=== PATIENT | female | born 1965 ===

== ENCOUNTER 2017-02-02 09:59 | Emergency (ER) | payer MEDICAID ==
[2017-02-02 10:23] VITALS: BMI 30.1
--- NOTE | 2017-02-02 10:36 | ED PDOC ---
HPI: CCC, URI, Sore Throat Time Seen by Provider: 02/02/17 10:04 Chief Complaint (Nursing): Cough, Cold, Congestion Chief Complaint (Provider): Sinus pressure x 6 days Onset/Duration Of Symptoms: Days Current Symptoms Are (Timing): Still Present Location Of Pain: Throat, Sinus/es, Headache Sick Contacts (Context): None Associated Symptoms: Sore Throat, Sinus Drainage, Myalgias. denies: Fever, Chills, Cough, Sputum, Neck Pain, Nasal Congestion, Vomiting Ear Symptoms: Bilateral: None Additional Complaint(s): PT states she has not taken any OTC medications Past Medical History Reviewed: Historical Data, Nursing Documentation, Vital Signs - Medical History PMH: Anxiety, Arthritis, Back Problems ("8 pinched nerves"), Depression, HTN ( STates she is not taking medication for BP becuase it improved after weight), Hypercholesterolemia Denies: Chronic Kidney Disease - Surgical History Surgical History: Tonsillectomy, (x1) - Family History Family History: States: Unknown Family Hx - Immunization History Hx Tetanus Toxoid Vaccination: No - Home Medications Home Medications: Ambulatory Orders Medication Instructions Recorded Azithromycin [Zithromax] 250 mg PO DAILY #6 tab 02/02/17 Guaifen/Phenyleph/Acetaminophn 1 tab PO BID #14 tab 02/02/17 [Mucinex Fast-Max Cold & Sinus 325 mg-200 mg-5] - Allergies Allergies/Adverse Reactions: Allergies Allergy/AdvReac Type Severity Reaction Status Date / Time No Known Allergies Allergy Verified 08/26/15 21:11 Review of Systems ROS Statement: Except As Marked, All Systems Reviewed And Found Negative Constitutional: Negative for: Fever ENT: Positive for: Nose Congestion, Throat Pain, Other. Negative for: Ear Pain Gastrointestinal: Negative for: Nausea, Vomiting, Abdominal Pain, Diarrhea Neurological: Negative for: Weakness Physical Exam - Reviewed Nursing Documentation Reviewed: Yes Vital Signs Reviewed: Yes - Physical Exam Appears: Positive for: Well, Non-toxic, No Acute Distress Head Exam: Positive for: ATRAUMATIC, NORMAL INSPECTION, NORMOCEPHALIC Skin: Positive for: Normal Color, Warm, DRY Eye Exam: Positive for: Normal appearance ENT: Positive for: Other (Tenderness of the frontal sinuses to percussion). Negative for: Normal ENT Inspection Neck: Positive for: Normal, Painless ROM Cardiovascular/Chest: Positive for: Regular Rate, Rhythm Respiratory: Positive for: CNT, Normal Breath Sounds Gastrointestinal/Abdominal: Positive for: Normal Exam, Bowel Sounds, Soft Back: Positive for: Normal Inspection Extremity: Positive for: Normal ROM Neurologic/Psych: Positive for: Alert, Oriented - Laboratory Results Urine POC: Negative Disposition - Clinical Impression Clinical Impression: Sinusitis - Patient ED Disposition Is Patient to be Admitted: No Counseled Patient/Family Regarding: Diagnosis, Need For Followup, Rx Given - Disposition Disposition: Routine/Home Disposition Time: 10:37 Condition: GOOD Prescriptions: Azithromycin [Zithromax] 250 mg PO DAILY #6 tab Guaifen/Phenyleph/Acetaminophn [Mucinex Fast-Max Cold & Sinus 325 mg-200 mg-5] 1 tab PO BID #14 tab Instructions: Sinusitis (ED)
[2017-02-02 10:47] VITALS: BP 132/85; PULSE 81; RESP 18; TEMP 98.2; O2SAT 99
== END 2017-02-02 10:50 | disposition home or self-care (01) ==
LOC: H.ER 09:59
DX: J01.90 Acute sinusitis, unspecified (principal)

== ENCOUNTER 2017-02-04 20:22 | Emergency (ER) | payer MEDICAID ==
[2017-02-04 20:23] VITALS: BMI 30.1
[2017-02-04 20:34] VITALS: BP 146/109; PULSE 91; TEMP 99.8; O2SAT 99
[2017-02-04 21:56] LABS: BASO % 0.4 % (0.0-2.0); EOS # 0.1 K/uL (0.0-0.7); EOS % 0.8 % (0.0-4.0); HEMOGLOBIN 13.6 g/dL (12.0-16.0); LYMPH # 3.1 K/uL (1.0-4.3); LYMPH % 29.9 % (20.0-40.0); MEAN CELL VOLUME 84.7 fl (81.0-99.0); MEAN CORPUSCULAR HEMOGLOBIN 27.7 pg (27.0-31.0); MEAN CORPUSCULAR HGB CONC 32.8 g/dL (33.0-37.0); MONO # 1.1 K/uL (0.0-0.8); MONO % 10.6 % (0.0-10.0); NEUT # 6.1 K/uL (1.8-7.0); NEUT % 58.3 % (50.0-75.0); RBC 4.9 Mil/uL (3.80-5.20); RED CELL DISTRIBUTION WIDTH 14.1 % (11.5-14.5); WHITE BLOOD COUNT 10.5 K/uL (4.8-10.8)
[2017-02-04 22:11] VITALS: RESP 20
--- NOTE | 2017-02-04 22:13 | CT ---
EXAM: CT Abdomen and Pelvis Without Intravenous Contrast CLINICAL HISTORY: 51 years old, female; Pain; Abdominal pain; Flank; Right; Prior surgery; Surgery date: 6+ months; Surgery type: Gastric sleeve. Tummy tuck. /1. Hysterectomy; Additional info: Right flank and abdominal pain TECHNIQUE: Axial computed tomography images of the abdomen and pelvis without intravenous contrast. This CT exam was performed using one or more of the following dose reduction techniques: automated exposure control, adjustment of the mA and/or kV according to patient size, and/or use of iterative reconstruction technique. Coronal and sagittal reformatted images were created and reviewed. EXAM DATE/TIME: 02/04/2017 9:09 PM COMPARISON: Prior CT abdomen and pelvis of 07/19/2013 FINDINGS: LIMITATIONS: Mild streak/motion artifact. LOWER THORAX: Small hiatal hernia, also seen on the prior exam. ABDOMEN: LIVER: No acute abnormality of the liver identified. GALLBLADDER AND BILE DUCTS: No CT evidence of acute cholecystitis. No evidence of significant biliary ductal dilatation. PANCREAS: No CT evidence of acute pancreatitis. SPLEEN: No acute abnormality of the spleen identified. ADRENALS: No acute abnormality of the adrenal glands identified. KIDNEYS AND URETERS: Low density lesion in the right kidney, measuring 1.3 cm, most likely a cyst. No acute abnormality of the kidneys identified. No renal stones, hydronephrosis, or hydroureter seen. STOMACH AND BOWEL: Postsurgical changes involving the stomach, compatible with the given history of prior gastric sleeve surgery stable in appearance compared to the prior exam. Otherwise, no significant abnormality of the bowel is identified. No acute abnormality of the stomach is identified. No evidence of bowel obstruction. No evidence of diffuse colitis/pancolitis. APPENDIX: Appendix is seen, and is within normal limits in appearance. PELVIS: BLADDER: No acute abnormality of the bladder identified. REPRODUCTIVE: Uterus is surgically absent. ABDOMEN and PELVIS: INTRAPERITONEAL SPACE: No evidence of free intraperitoneal air or fluid. BONES/JOINTS: No acute fractures or other acute bony abnormality noted. SOFT TISSUES: Probable scarring in the anterior pelvic wall soft tissues, likely related to the known prior abdominoplasty. Irregular soft tissue density is seen in this area, which is associated with soft tissue thinning/retraction. No evidence of abdominal wall hernia containing bowel. VASCULATURE: No evidence of abdominal aortic aneurysm. No evidence of periaortic hemorrhage. LYMPH NODES: No evidence of diffuse lymphadenopathy. IMPRESSION: - No evidence of significant acute process on this unenhanced exam. There is no evidence of nephrolithiasis or obstructive uropathy. - Small hiatal hernia, with evidence of prior gastric sleeve surgery. Findings are similar to a prior CT. - See above for remaining findings.
[2017-02-04 22:17] LABS: ALB/GLOB RATIO 1.5 (1.0-2.1); ALBUMIN 4.8 g/dL (3.5-5.0); ALT/SGPT 42 U/L (9-52); AST/SGOT 34 U/L (14-36); BLOOD UREA NITROGEN 18 mg/dl (7-17); CALCIUM 9.9 mg/dL (8.4-10.2); GFR AFRICAN-AMERICAN > 60; GFR NON-AFRICAN AMERICAN > 60; LIPASE 52 U/L (23-300)
--- NOTE | 2017-02-04 22:34 | ED PDOC ---
HPI: SOB/CHF/COPD Time Seen by Provider: 02/04/17 20:48 Chief Complaint (Nursing): Shortness Of Breath Chief Complaint (Provider): Shortness Of Breath History Per: Patient History/Exam Limitations: no limitations Onset/Duration Of Symptoms: Days (x4 days) Current Symptoms Are (Timing): Still Present Additional Complaint(s): 51 y/o female presents to the emergency department with a complaint of a right- sided flank pain that radiating to the front abdominal region, nausea and shortness of breath that was initially mild in pain but worsened x4 days. Patient reports she was seen in this emergency room 2 days ago for upper respiratory symptoms and diagnosed with sinusitis which had gotten better although abdominal pain with associated symptoms had not. States pain worsens with certain movements and deep breaths. Denies vomiting, diarrhea, constipation , and urinary symptoms. Past Medical History Reviewed: Historical Data, Nursing Documentation, Vital Signs Vital Signs: Last Vital Signs Temp 99.8 F H 02/04/17 20:31 Pulse 91 H 02/04/17 20:31 Resp 20 02/04/17 22:02 BP 146/109 H 02/04/17 20:31 Pulse Ox 99 02/04/17 23:48 - Medical History PMH: Anxiety, Arthritis, Back Problems ("8 pinched nerves"), Depression, HTN ( STates she is not taking medication for BP becuase it improved after weight), Hypercholesterolemia Denies: Chronic Kidney Disease - Surgical History Surgical History: Tonsillectomy, (x1) - Family History Family History: States: Hypertension - Social History Current smoker - smoking cessation education provided: No Alcohol: None Drugs: Denies - Immunization History Hx Tetanus Toxoid Vaccination: No - Home Medications Home Medications: Ambulatory Orders Medication Instructions Recorded Azithromycin [Zithromax] 250 mg PO DAILY #6 tab 02/02/17 Guaifen/Phenyleph/Acetaminophn 1 tab PO BID #14 tab 02/02/17 [Mucinex Fast-Max Cold & Sinus 325 mg-200 mg-5] Sucralfate [Carafate] 1 gm PO QID PRN #20 dose 02/04/17 - Allergies Allergies/Adverse Reactions: Allergies Allergy/AdvReac Type Severity Reaction Status Date / Time No Known Allergies Allergy Verified 08/26/15 21:11 Review of Systems ROS Statement: Except As Marked, All Systems Reviewed And Found Negative Gastrointestinal: Positive for: Nausea, Abdominal Pain. Negative for: Vomiting , Diarrhea, Constipation Genitourinary Female: Negative for: Dysuria, Frequency, Incontinence, Hematuria Musculoskeletal: Positive for: Back Pain Physical Exam - Reviewed Nursing Documentation Reviewed: Yes Vital Signs Reviewed: Yes - Physical Exam Appears: Positive for: Well (Well developed and well nourished), Non-toxic, In Acute Distress (Mild) Head Exam: Positive for: ATRAUMATIC, NORMAL INSPECTION, NORMOCEPHALIC Skin: Positive for: Normal Color, Warm, Dry ENT: Positive for: Normal ENT Inspection. Negative for: Pharyngeal Erythema Neck: Positive for: Normal, Supple Cardiovascular/Chest: Positive for: Regular Rate, Rhythm, Other (Tenderness to palpation of the right posterior chest wall). Negative for: Chest Non Tender ( no crepitus or step off), Murmur Respiratory: Positive for: Normal Breath Sounds. Negative for: Accessory Muscle Use, Respiratory Distress Gastrointestinal/Abdominal: Positive for: Soft, Tenderness (Diffuse tenderness but more localized to the right lower quadrant compared to the left). Negative for: Normal Exam, Distended Extremity: Positive for: Normal ROM. Negative for: Pedal Edema Neurologic/Psych: Positive for: Alert, Oriented, Mood/Affect (Anxious) - Laboratory Results Result Diagrams: 02/04/17 21:31 02/04/17 21:31 - ECG O2 Sat by Pulse Oximetry: 99 (RA) Pulse Ox Interpretation: Normal Medical Decision Making Medical Decision Making: Time: 21:09 Initial Impression: Flank pain and shortness of breath. Differential includes renal colic and pyelonephritis. Less likely appendicitis and pulmonary embolism. Initial Plan: --EKG --Chest x-ray --Toradol 15 mg IV --Blood Culture --Reevaluation Time: 22:12 --Abdomen/Pelvis CT FINDINGS: LIMITATIONS: Mild streak/motion artifact. LOWER THORAX: Small hiatal hernia, also seen on the prior exam. ABDOMEN: LIVER: No acute abnormality of the liver identified. GALLBLADDER AND BILE DUCTS: No CT evidence of acute cholecystitis. No evidence of significant biliary ductal dilatation. PANCREAS: No CT evidence of acute pancreatitis. SPLEEN: No acute abnormality of the spleen identified. ADRENALS: No acute abnormality of the adrenal glands identified. KIDNEYS AND URETERS: Low density lesion in the right kidney, measuring 1.3 cm, most likely a cyst. No acute abnormality of the kidneys identified. No renal stones, hydronephrosis, or hydroureter seen. STOMACH AND BOWEL: Postsurgical changes involving the stomach, compatible with the given history of prior gastric sleeve surgery stable in appearance compared to the prior exam. Otherwise, no significant abnormality of the bowel is identified. No acute abnormality of the stomach is identified. No evidence of bowel obstruction. No evidence of diffuse colitis/pancolitis. APPENDIX: Appendix is seen, and is within normal limits in appearance. PELVIS: BLADDER: No acute abnormality of the bladder identified. REPRODUCTIVE: Uterus is surgically absent. ABDOMEN and PELVIS: INTRAPERITONEAL SPACE: No evidence of free intraperitoneal air or fluid. BONES/JOINTS: No acute fractures or other acute bony abnormality noted. SOFT TISSUES: Probable scarring in the anterior pelvic wall soft tissues, likely related to the known prior abdominoplasty. Irregular soft tissue density is seen in this area, which is associated with soft tissue thinning/ retraction. No evidence of abdominal wall hernia containing bowel. VASCULATURE: No evidence of abdominal aortic aneurysm. No evidence of periaortic hemorrhage. LYMPH NODES: No evidence of diffuse lymphadenopathy. IMPRESSION: - No evidence of significant acute process on this unenhanced exam. There is no evidence of nephrolithiasis or obstructive uropathy. - Small hiatal hernia, with evidence of prior gastric sleeve surgery. Findings are similar to a prior CT. - See above for remaining findings. EXAM: CT Angiography Chest With Intravenous Contrast CLINICAL HISTORY: 51 years old, female; Signs and symptoms; Shortness of breath; Additional info: SOB positive d dimer TECHNIQUE: Axial computed tomographic angiography images of the chest with intravenous contrast using pulmonary embolism protocol. This CT exam was performed using one or more of the following dose reduction techniques: automated exposure control, adjustment of the mA and/or kV according to patient size, and/or use of iterative reconstruction technique. MIP reconstructed images were created and reviewed. Coronal and sagittal reformatted images were created and reviewed. CONTRAST: 90 mL of [id number] administered intravenously. COMPARISON: None FINDINGS: Pulmonary arteries: No pulmonary embolism. Aorta: No thoracic aortic aneurysm. Lungs: No mass. No consolidation. Pleural spaces: No significant effusion. No pneumothorax. Heart: No cardiomegaly. No significant pericardial effusion. No evidence of right heart dysfunction. Bones: No acute fracture. Lymph nodes: No pathologically enlarged lymph nodes. IMPRESSION: No pulmonary embolism. The lungs are clear. Thank you for allowing us to participate in the care of your patient. Dictated and Authenticated by: Sofie Galicia MD 02/04/2017 11:36 PM Eastern Time ([place] & [place]) DW pt findings and plan of care.Stable for dc. Scribe Attestation: Documented by Parul Vaughn, acting as a scribe for Renee Choi MD. Provider Scribe Attestation: All medical record entries made by the Scribe were at my direction and personally dictated by me. I have reviewed the chart and agree that the record accurately reflects my personal performance of the history, physical exam, medical decision making, and the department course for this patient. I have also personally directed, reviewed, and agree with the discharge instructions and disposition. Disposition - Clinical Impression Clinical Impression: Flank pain, Abdominal pain Counseled Patient/Family Regarding: Studies Performed, Diagnosis, Need For Followup, Rx Given - Disposition Referrals: [facility] [Outside] - 02/05/17 (CALL TOMORROW TO SETUP FOLLOWUP APPOINTMENT WITHIN 1 WEEK.) Disposition: Routine/Home Disposition Time: 23:00 Condition: IMPROVED Prescriptions: Sucralfate [Carafate] 1 gm PO QID PRN #20 dose PRN Reason: Abdominal pain Instructions: Gas and Bloating (ED), Abdominal Pain (ED) Forms: [facility] ED School/Work Excuse
[2017-02-04] MEDS ORDERED: Sodium Chloride 0.9% 50 ML IV ONE (22:57)
[2017-02-04] MEDS ORDERED: Iodixanol 320 MG/ML 100 ML BOTTLE IV ONE (22:57)
--- NOTE | 2017-02-04 23:37 | CT ---
EXAM: CT Angiography Chest With Intravenous Contrast CLINICAL HISTORY: 51 years old, female; Signs and symptoms; Shortness of breath; Additional info: SOB positive d dimer TECHNIQUE: Axial computed tomographic angiography images of the chest with intravenous contrast using pulmonary embolism protocol. This CT exam was performed using one or more of the following dose reduction techniques: automated exposure control, adjustment of the mA and/or kV according to patient size, and/or use of iterative reconstruction technique. MIP reconstructed images were created and reviewed. Coronal and sagittal reformatted images were created and reviewed. CONTRAST: 90 mL of [id number] administered intravenously. COMPARISON: None FINDINGS: Pulmonary arteries: No pulmonary embolism. Aorta: No thoracic aortic aneurysm. Lungs: No mass. No consolidation. Pleural spaces: No significant effusion. No pneumothorax. Heart: No cardiomegaly. No significant pericardial effusion. No evidence of right heart dysfunction. Bones: No acute fracture. Lymph nodes: No pathologically enlarged lymph nodes. IMPRESSION: No pulmonary embolism. The lungs are clear.
--- NOTE | 2017-02-05 10:08 | RAD ---
HISTORY: RIGHT flank pain sob cough COMPARISON: No prior. TECHNIQUE: Chest PA and lateral FINDINGS: LUNGS: The lungs are well inflated and clear. PLEURA: No significant pleural effusion identified. No pneumothorax apparent. CARDIOVASCULAR: Normal. OSSEOUS STRUCTURES: No significant abnormalities. Status post ACDF in the lower cervical spine. VISUALIZED UPPER ABDOMEN: Normal. OTHER FINDINGS: None. IMPRESSION: No active pulmonary disease.
--- NOTE | 2017-02-05 10:58 | CARD ---
APPROVED REPORT EKG Measurement Heart [id number] <Conclusion> Normal sinus rhythm Possible Left atrial enlargement Left ventricular hypertrophy Poor R wave progression (V2 to V3)Abnormal ECG
== END 2017-02-05 | disposition home or self-care (01) ==
LOC: H.ER 20:22
DX: R10.9 Unspecified abdominal pain (principal); R14.0 Abdominal distension (gaseous); F32.9 Major depressive disorder, single episode, unspecified; F41.9 Anxiety disorder, unspecified; I10 Essential (primary) hypertension; Z90.710 Acquired absence of both cervix and uterus; J44.9 Chronic obstructive pulmonary disease, unspecified; K44.9 Diaphragmatic hernia without obstruction or gangrene

== ENCOUNTER 2017-04-29 19:35 | Emergency (ER) | payer MEDICAID ==
[2017-04-29 19:36] VITALS: BMI 30.1
[2017-04-29 20:04] VITALS: BP 148/113; PULSE 105; RESP 16; TEMP 98.6; O2SAT 100
--- NOTE | 2017-04-29 20:24 | ED PDOC ---
Lower Extremity Pain/Injury Time Seen by Provider: 04/29/17 20:09 Chief Complaint (Nursing): Lower Extremity Problem/Injury Chief Complaint (Provider): left knee pain History Per: Patient History/Exam Limitations: no limitations Onset/Duration Of Symptoms: Days (3) Current Symptoms Are (Timing): Still Present Additional History Per: Patient Additional Complaint(s): 51 y/o female presents with acute on chronic left knee pain x 3 days. Patient states pain has been there after trauma/surgery to left lower leg >10 years ago. Patient states she has not been seen by anyone for it recently since it has not bothered her in a while. Patient denies fever, new injury/trauma, numbness/weakness left lower extremity. One oxycodone taken with little relief. Past Medical History Reviewed: Historical Data, Nursing Documentation, Vital Signs Vital Signs: Last Vital Signs Temp 98.6 F 04/29/17 20:01 Pulse 105 H 04/29/17 20:01 Resp 16 04/29/17 20:01 BP 148/113 H 04/29/17 20:01 Pulse Ox 100 04/29/17 20:01 - Medical History PMH: Anxiety, Arthritis, Back Problems ("8 pinched nerves"), Depression, HTN ( STates she is not taking medication for BP becuase it improved after weight), Hypercholesterolemia, Chronic Pain Denies: Chronic Kidney Disease - Surgical History Surgical History: Tonsillectomy, (x1) - Family History Family History: States: Unknown Family Hx, Hypertension - Immunization History Hx Tetanus Toxoid Vaccination: No - Home Medications Home Medications: Ambulatory Orders Medication Instructions Recorded Azithromycin [Zithromax] 250 mg PO DAILY #6 tab 02/02/17 Guaifen/Phenyleph/Acetaminophn 1 tab PO BID #14 tab 02/02/17 [Mucinex Fast-Max Cold & Sinus 325 mg-200 mg-5] Sucralfate [Carafate] 1 gm PO QID PRN #20 dose 02/04/17 Naproxen [Naprosyn] 500 mg PO Q12 PRN #20 tablet 04/29/17 - Allergies Allergies/Adverse Reactions: Allergies Allergy/AdvReac Type Severity Reaction Status Date / Time No Known Allergies Allergy Verified 04/29/17 20:01 Review of Systems ROS Statement: Except As Marked, All Systems Reviewed And Found Negative Musculoskeletal: Positive for: Leg Pain (left knee) Physical Exam - Reviewed Nursing Documentation Reviewed: Yes Vital Signs Reviewed: Yes - Physical Exam Appears: Positive for: Well, Non-toxic, No Acute Distress Cardiovascular/Chest: Positive for: Regular Rate, Rhythm Respiratory: Positive for: Normal Breath Sounds Pulses-Dorsalis Pedis (L): 2+ Pulses-Dorsalis Pedis (R): 2+ Pulses-Post. Tibialis (L): 2+ Pulses-Post. Tibialis (R): 2+ Extremity: Positive for: Tenderness (left medial knee with mild swelling. No erythema, temp change. No varus/valgus stress. FROM) Neurologic/Psych: Positive for: Alert, Oriented. Negative for: Motor/Sensory Deficits - ECG O2 Sat by Pulse Oximetry: 100 - Progress ED Course And Treament: xray, toradol IM EXAM: XR Left Knee, 3 views CLINICAL HISTORY: 51 years old, female; Pain; Knee; Left; Additional info: Acute on chronic pain TECHNIQUE: Three views of the left knee. COMPARISON: MR - KNEE W/O CONTRAST LEFT 10/30/2016 4:32:39 PM FINDINGS: Bones/joints: Degenerative disease, with tibiofemoral joint space narrowing and patellofemoral joint space narrowing. Osteophyte formation is also detected. No acute fracture. No dislocation. Soft tissues: Unremarkable. IMPRESSION: Degenerative disease, without acute fracture. Knee wrapped in INGRID. Advised RICE, rx naproxen given.Follow up ortho. Return to ED for worsening/concerning symptoms. Disposition - Clinical Impression Clinical Impression: Knee pain - Patient ED Disposition Is Patient to be Admitted: No Counseled Patient/Family Regarding: Studies Performed, Diagnosis, Need For Followup, Rx Given - Disposition Referrals: William Manjarrez III, MD [Staff Provider] - Disposition: Routine/Home Disposition Time: 22:10 Condition: IMPROVED Prescriptions: Naproxen [Naprosyn] 500 mg PO Q12 PRN #20 tablet PRN Reason: Pain, Moderate (4-7) Instructions: Knee Pain (ED), RICE Therapy (ED)
--- NOTE | 2017-04-29 21:57 | RAD ---
EXAM: XR Left Knee, 3 views CLINICAL HISTORY: 51 years old, female; Pain; Knee; Left; Additional info: Acute on chronic pain TECHNIQUE: Three views of the left knee. COMPARISON: MR - KNEE W/O CONTRAST LEFT 10/30/2016 4:32:39 PM FINDINGS: Bones/joints: Degenerative disease, with tibiofemoral joint space narrowing and patellofemoral joint space narrowing. Osteophyte formation is also detected. No acute fracture. No dislocation. Soft tissues: Unremarkable. IMPRESSION: Degenerative disease, without acute fracture.
== END 2017-04-29 22:30 | disposition home or self-care (01) ==
LOC: H.ER 19:35
DX: M25.562 Pain in left knee (principal)
CPT/HCPCS: 73562; 96372; 99283; J1885

== ENCOUNTER 2017-07-29 18:10 | Emergency (ER) | payer MEDICAID ==
[2017-07-29 18:11] VITALS: BMI 30.1
[2017-07-29 18:53] VITALS: BP 173/119; PULSE 84; RESP 16; TEMP 98; O2SAT 100
--- NOTE | 2017-07-29 19:39 | ED PDOC ---
Lower Extremity Pain/Injury Time Seen by Provider: 07/29/17 18:19 Chief Complaint (Nursing): Lower Extremity Problem/Injury Chief Complaint (Provider): Lower Extremity Problem/Injury History Per: Patient History/Exam Limitations: no limitations Onset/Duration Of Symptoms: Days (x 2) Current Symptoms Are (Timing): Still Present Additional History Per: Prior Records Additional Complaint(s): Ilana is a 51 year old female who presents to the emergency department with chronic left knee pain since yesterday. Denies recent injury or trauma. Patient reports taking Oxycodone 15 mg at home, but with no relief. Patient is requesting "butt injection". Previous records shows patient got Toradol last visit PMD: Rhonda Madison Past Medical History Reviewed: Historical Data, Nursing Documentation, Vital Signs Vital Signs: Last Vital Signs Temp 98.0 F 07/29/17 18:50 Pulse 84 07/29/17 18:50 Resp 16 07/29/17 18:50 BP 173/119 H 07/29/17 18:50 Pulse Ox 100 07/29/17 18:50 - Medical History PMH: Anxiety, Arthritis, Back Problems ("8 pinched nerves"), Depression, HTN ( STates she is not taking medication for BP becuase it improved after weight), Hypercholesterolemia, Chronic Pain Denies: Chronic Kidney Disease - Surgical History Surgical History: Tonsillectomy, (x1) - Family History Family History: States: Unknown Family Hx, Hypertension - Immunization History Hx Tetanus Toxoid Vaccination: No - Home Medications Home Medications: Ambulatory Orders Medication Instructions Recorded Azithromycin [Zithromax] 250 mg PO DAILY #6 tab 02/02/17 Guaifen/Phenyleph/Acetaminophn 1 tab PO BID #14 tab 02/02/17 [Mucinex Fast-Max Cold & Sinus 325 mg-200 mg-5] Sucralfate [Carafate] 1 gm PO QID PRN #20 dose 02/04/17 Naproxen [Naprosyn] 500 mg PO Q12 PRN #20 tablet 04/29/17 - Allergies Allergies/Adverse Reactions: Allergies Allergy/AdvReac Type Severity Reaction Status Date / Time No Known Allergies Allergy Verified 07/29/17 18:50 Review of Systems ROS Statement: Except As Marked, All Systems Reviewed And Found Negative Musculoskeletal: Positive for: Other (Left Knee Pain) Physical Exam - Reviewed Nursing Documentation Reviewed: Yes Vital Signs Reviewed: Yes - ECG O2 Sat by Pulse Oximetry: 100 (RA) Pulse Ox Interpretation: Normal Medical Decision Making Medical Decision Making: Time: 19:25 Plan: - Toradol 60 mg IM Scribe Attestation: Documented by Hernan Cuadra, acting as a scribe for Rae Vaughn PA-C Provider Scribe Attestation: All medical record entries made by the Scribe were at my direction and personally dictated by me. I have reviewed the chart and agree that the record accurately reflects my personal performance of the history, physical exam, medical decision making, and the department course for this patient. I have also personally directed, reviewed, and agree with the discharge instructions and disposition. Disposition - Clinical Impression Clinical Impression: Chronic knee pain - Disposition Condition: STABLE Instructions: Chronic Pain (ED) Forms: [employer] (Panamanian)
== END 2017-07-29 20:10 | disposition home or self-care (01) ==
LOC: H.ER 18:10
DX: M25.562 Pain in left knee (principal); G89.29 Other chronic pain; F32.9 Major depressive disorder, single episode, unspecified; F41.9 Anxiety disorder, unspecified; I10 Essential (primary) hypertension
CPT/HCPCS: 81025; 96372; 99283; J1885

== ENCOUNTER 2017-09-03 15:50 | Emergency (ER) | payer MEDICAID ==
[2017-09-03 15:51] VITALS: BMI 30.1
[2017-09-03 16:00] VITALS: BP 149/95; PULSE 91; RESP 16; TEMP 98.7; O2SAT 100
[2017-09-03] MEDS ORDERED: Sodium Chloride 0.9% 1,000 ML IV STA (16:34)
[2017-09-03] MEDS ORDERED: Iohexol 240 (50 ml) PO ONE (16:37)
[2017-09-03] MEDS ORDERED: Morphine 4 MG/ML VIAL ONE (16:47)
[2017-09-03] MEDS ORDERED: Iohexol 240 (50 ml) ONE (16:47)
--- NOTE | 2017-09-03 16:47 | ED PDOC ---
HPI: Abdomen Time Seen by Provider: 09/03/17 16:17 Chief Complaint (Nursing): Abdominal Pain Chief Complaint (Provider): Abdominal pain History Per: Patient History/Exam Limitations: no limitations Onset/Duration Of Symptoms: Days (x2 months) Current Symptoms Are (Timing): Still Present Quality Of Discomfort: "Pain" Associated Symptoms: Urinary Symptoms (bloody urine, no dysuria), Other ( abdominal pain, hemoptysis). denies: Fever, Chills, Nausea, Vomiting, Diarrhea , Chest Pain Additional Complaint(s): Ilana Hilario is a 52 year old female, with a past medical history of hypertension, who presents to the emergency department complaining of blood in urine, and abdominal pain onset for x2 months. Patient also reports a worsening cough and congestion for x5 days associated with x2 episodes of coughing up blood. Patient states she was seen by OBGYN and primary doctor who sent her to an urologist, she saw the specialist on Thursday. She denies any fever, chills, shortness of breath, chest pain, nausaa, vomit or diarrhea. No further medical complaints. No dysuria. PMD: Rhonda Sol Past Medical History Reviewed: Historical Data, Nursing Documentation, Vital Signs Vital Signs: Last Vital Signs Temp 98.7 F 09/03/17 16:00 Pulse 91 H 09/03/17 16:00 Resp 16 09/03/17 16:00 BP 149/95 H 09/03/17 16:00 Pulse Ox 100 09/03/17 18:28 - Medical History PMH: Anxiety, Arthritis, Back Problems ("8 pinched nerves"), Depression, HTN ( STates she is not taking medication for BP becuase it improved after weight), Hypercholesterolemia, Chronic Pain Denies: Chronic Kidney Disease Other PMH: bloody urine - Surgical History Surgical History: Tonsillectomy, (x1) - Family History Family History: States: Unknown Family Hx, Hypertension - Social History Alcohol: None Drugs: Denies - Immunization History Hx Tetanus Toxoid Vaccination: No - Home Medications Home Medications: Ambulatory Orders Medication Instructions Recorded Alprazolam [Xanax] 2 mg PO TID PRN 09/03/17 DULoxetine [Cymbalta] 60 mg PO DAILY 09/03/17 Ibuprofen [Motrin] 600 mg PO TID 7 Days tab 09/03/17 Mirtazapine [Remeron] 7.5 mg PO HS PRN 09/03/17 Oseltamivir Phosphate [Tamiflu] 75 mg PO BID 5 Days capsule 09/03/17 - Allergies Allergies/Adverse Reactions: Allergies Allergy/AdvReac Type Severity Reaction Status Date / Time No Known Allergies Allergy Verified 07/29/17 18:50 Review of Systems ROS Statement: Except As Marked, All Systems Reviewed And Found Negative Constitutional: Negative for: Fever, Chills ENT: Positive for: Nose Congestion Cardiovascular: Negative for: Chest Pain Respiratory: Positive for: Cough, Hemoptysis (x2 episodes). Negative for: Shortness of Breath Gastrointestinal: Positive for: Abdominal Pain. Negative for: Nausea, Vomiting , Diarrhea Genitourinary Female: Positive for: Hematuria. Negative for: Dysuria Physical Exam - Reviewed Nursing Documentation Reviewed: Yes Vital Signs Reviewed: Yes - Physical Exam Appears: Positive for: Well, Non-toxic, No Acute Distress Head Exam: Positive for: ATRAUMATIC, NORMAL INSPECTION, NORMOCEPHALIC Skin: Positive for: Normal Color, Warm, Dry Eye Exam: Positive for: Normal appearance, EOMI, PERRL ENT: Positive for: Normal ENT Inspection. Negative for: Nasal Congestion Neck: Positive for: Painless ROM, Supple Cardiovascular/Chest: Positive for: Regular Rate, Rhythm. Negative for: Murmur Respiratory: Positive for: Normal Breath Sounds (clear ausculatation b/l ). Negative for: Decreased Breath Sounds, Respiratory Distress Gastrointestinal/Abdominal: Positive for: Soft, Tenderness (epigastric and LLQ) Back: Positive for: R CVA Tenderness Extremity: Positive for: Normal ROM. Negative for: Pedal Edema, Deformity, Swelling Neurologic/Psych: Positive for: Alert, Oriented - Laboratory Results Result Diagrams: 09/03/17 17:10 09/03/17 17:10 Interpretation Of Abn Labs: flu pos - ECG ECG: Positive for: Interpreted By Me, Viewed By Me ECG Rhythm: Positive for: Sinus Rhythm (no changes) Interpretation Of Abn EKG: EKG 2: no changes; sinus O2 Sat by Pulse Oximetry: 100 (RA) Pulse Ox Interpretation: Normal - Radiology X-Ray: Read By Radiologist X-Ray Interpretation: No Acute Disease - Progress ED Course And Treament: 2046: Stable. AAOx3. Tolerated po. Fu with pcp. Medical Decision Making Medical Decision Making: Initial Impression: Abdominal pain Initial Plan: --Abd Pelvis PO & IV Contrast [CT] --Comp Metabolic Panel --Lipase --Urine dip --CBC w/ differential --PTT --PT --Chest portable [RAD] --Omnipaque 240 50 ml PO --Morphine 4 mg IV --Sodium Chloride 1,000 ml IV 1,000 mls/hr --Influenza A B --reevaluation Scribe Attestation: Documented by Renard Luque, acting as a scribe for Servando Owens MD Provider Scribe Attestation: All medical record entries made by the Scribe were at my direction and personally dictated by me. I have reviewed the chart and agree that the record accurately reflects my personal performance of the history, physical exam, medical decision making, and the department course for this patient. I have also personally directed, reviewed, and agree with the discharge instructions and disposition. Disposition - Clinical Impression Clinical Impression: Influenza, Abdominal pain - Patient ED Disposition Is Patient to be Admitted: No Counseled Patient/Family Regarding: Studies Performed, Diagnosis, Need For Followup - Disposition Referrals: Rhonda Sol MD [Medical Doctor] - 09/04/17 Disposition: Routine/Home Disposition Time: 20:00 Condition: STABLE Additional Instructions: Return if not better in 3 days. Prescriptions: Ibuprofen [Motrin] 600 mg PO TID 7 Days tab Oseltamivir Phosphate [Tamiflu] 75 mg PO BID 5 Days capsule Instructions: Acute Abdominal Pain (ED), Influenza (ED) Forms: [facility] ED School/Work Excuse
[2017-09-03] MEDS ORDERED: Morphine 4 MG/ML VIAL IV ONE (17:00)
[2017-09-03] MEDS ORDERED: Albuterol-Ipratrop 3 mg / 0.5 (3 ml) UD IH STA (17:28)
[2017-09-03] MEDS ORDERED: Albuterol-Ipratrop 3 mg / 0.5 (3 ml) UD ONE (17:36)
--- NOTE | 2017-09-03 17:36 | RAD ---
HISTORY: Cough. COMPARISON: 02/04/2017 FINDINGS: LUNGS: No active pulmonary disease. PLEURA: No significant pleural effusion identified, no pneumothorax apparent. CARDIOVASCULAR: No radiographic findings to suggest acute or significant cardiovascular disease. OSSEOUS STRUCTURES: No significant abnormalities. VISUALIZED UPPER ABDOMEN: Normal. OTHER FINDINGS: None. IMPRESSION: No active disease. No significant interval change compared to the prior examination(s).
[2017-09-03 17:44] LABS: BASO # 0.1 K/uL (0.0-0.2); BASO % 0.8 % (0.0-2.0); EOS # 0.2 K/uL (0.0-0.7); EOS % 2.2 % (0.0-4.0); LYMPH # 2.3 K/uL (1.0-4.3); MEAN CELL VOLUME 85.5 fl (81.0-99.0); MEAN CORPUSCULAR HEMOGLOBIN 27.7 pg (27.0-31.0); MEAN CORPUSCULAR HGB CONC 32.4 g/dL (33.0-37.0); MEAN PLATELET VOLUME 9.4 fl (7.2-11.7); MONO # 0.6 K/uL (0.0-0.8); NEUT # 4.4 K/uL (1.8-7.0); NRBC % 0.1 % (0.0-0.0); RBC 4.69 Mil/uL (3.80-5.20); RED CELL DISTRIBUTION WIDTH 13.6 % (11.5-14.5); WHITE BLOOD COUNT 7.6 K/uL (4.8-10.8)
[2017-09-03 18:11] LABS: ALB/GLOB RATIO 1.5 (1.0-2.1); ALBUMIN 4.1 g/dL (3.5-5.0); ALT/SGPT 38 U/L (9-52); AST/SGOT 33 U/L (14-36); BLOOD UREA NITROGEN 13 mg/dl (7-17); CALCIUM 9.4 mg/dL (8.4-10.2); GFR AFRICAN-AMERICAN > 60; GFR NON-AFRICAN AMERICAN > 60; INR 1.1 (0.9-1.2); LIPASE 64 U/L (23-300); PARTIAL THROMBOPLASTIN TIME 30.8 Seconds (25.6-37.1); PROTHROMBIN TIME 11.7 Seconds (9.8-13.1)
[2017-09-03] MEDS ORDERED: Sodium Chloride 0.9% 50 ML IV ONE (19:27)
[2017-09-03] MEDS ORDERED: Iohexol 300 100 ML IJ ONE (19:27)
--- NOTE | 2017-09-03 20:39 | CT ---
EXAM: CT Abdomen and Pelvis With Intravenous Contrast CLINICAL HISTORY: 52 years old, female; Pain; Abdominal pain; Epigastric; Prior surgery; Surgery date: 6+ months; Surgery type: Lap band, tummy tuck, ; Additional info: Abd pain TECHNIQUE: Axial computed tomography images of the abdomen and pelvis with intravenous contrast. All CT scans at this facility use one or more dose reduction techniques, viz.: automated exposure control; ma/kV adjustment per patient size (including targeted exams where dose is matched to indication; i.e. head); or iterative reconstruction technique. Coronal and sagittal reformatted images were created and reviewed. CONTRAST: 95 mL of Omnipaque administered intravenously. COMPARISON: CT - ABD PELVIS W/O PO OR IV CONT 2017-08-06 09:30 FINDINGS: Lower thorax: Mild atelectasis/scarring. Elevated RIGHT hemidiaphragm. Small hiatal hernia. Mild mural thickening vs underdistention of distal esophagus. ABDOMEN: Liver: Fatty infiltration. Gallbladder and bile ducts: No calcified stones. No ductal dilation. Pancreas: No ductal dilation. No mass. Spleen: No splenomegaly. Adrenals: No mass. Kidneys and ureters: Few probable RIGHT renal cysts. No hydronephrosis. Stomach and bowel: Postsurgical changes of stomach. Few scattered diverticula within colon. No associated inflammatory stranding. No definite mural thickening. No obstruction. Appendix: Normal caliber. No inflammation. PELVIS: Bladder: Unremarkable. Reproductive: Hysterectomy. ABDOMEN and PELVIS: Intraperitoneal space: No significant fluid collection. No free air. Bones/joints: Mild degenerative changes of spine. No acute fracture. Soft tissues: Scarring within subcutaneous tissues of abdominal wall. Vasculature: Retroaortic LEFT renal vein. No aneurysm. Minimal atherosclerotic disease of aorta. Lymph nodes: No pathologically enlarged lymph nodes. IMPRESSION: 1. Diverticulosis without definite CT evidence of diverticulitis. 2. Incidental/non-acute findings are described above.
--- NOTE | 2017-09-04 11:24 | CARD ---
APPROVED REPORT EKG Measurement Heart [id number] <Conclusion> Normal sinus rhythm Minimal voltage criteria for LVH, may be normal variant Borderline ECG
--- NOTE | 2017-09-04 11:24 | CARD ---
APPROVED REPORT EKG Measurement Heart [id number] <Conclusion> Normal sinus rhythm Moderate voltage criteria for LVH, may be normal variant ST elevation, consider early repolarization, pericarditis, or injury Abnormal ECG
== END 2017-09-03 21:20 | disposition home or self-care (01) ==
LOC: H.ER 15:50
DX: J11.1 Influenza due to unidentified influenza virus with other respiratory manifestations (principal); R10.9 Unspecified abdominal pain; I10 Essential (primary) hypertension; F32.9 Major depressive disorder, single episode, unspecified; F41.9 Anxiety disorder, unspecified
CPT/HCPCS: 71045; 74177; 80053; 81025; 83690; 84484; 85025; 85610; 85730; 87804; 93005; 96360; 99284; J2270; J2405; J7040; Q9966; Q9967

== ENCOUNTER 2017-12-15 14:31 | Emergency (ER) | payer MEDICAID ==
[2017-12-15 14:31] VITALS: BMI 30.1
[2017-12-15 14:47] VITALS: BP 175/107; TEMP 97; O2SAT 96
[2017-12-15 16:04] LABS: BASO % 0.7 % (0.0-2.0); EOS # 0.1 K/uL (0.0-0.7); EOS % 1.8 % (0.0-4.0); HEMOGLOBIN 12.9 g/dL (12.0-16.0); LYMPH # 1.5 K/uL (1.0-4.3); LYMPH % 25.2 % (20.0-40.0); MEAN CELL VOLUME 85.5 fl (81.0-99.0); MEAN CORPUSCULAR HEMOGLOBIN 28.3 pg (27.0-31.0); MEAN CORPUSCULAR HGB CONC 33.1 g/dL (33.0-37.0); MEAN PLATELET VOLUME 8.8 fl (7.2-11.7); MONO # 0.5 K/uL (0.0-0.8); MONO % 7.7 % (0.0-10.0); NEUT # 3.9 K/uL (1.8-7.0); NEUT % 64.6 % (50.0-75.0); NRBC % 0.1 % (0.0-0.0); RBC 4.56 Mil/uL (3.80-5.20); WHITE BLOOD COUNT 6.1 K/uL (4.8-10.8)
[2017-12-15 16:06] VITALS: RESP 18
[2017-12-15 16:11] LABS: ALB/GLOB RATIO 1.4 (1.0-2.1); ALBUMIN 4.3 g/dL (3.5-5.0); ALT/SGPT 31 U/L (9-52); AST/SGOT 26 U/L (14-36); BLOOD UREA NITROGEN 14 mg/dl (7-17); CALCIUM 9.2 mg/dL (8.4-10.2); GFR AFRICAN-AMERICAN > 60; GFR NON-AFRICAN AMERICAN > 60
--- NOTE | 2017-12-15 17:01 | RAD ---
HISTORY: chest congestion COMPARISON: 09/03/2017. TECHNIQUE: Chest PA and lateral FINDINGS: LUNGS: No active pulmonary disease. PLEURA: No significant pleural effusion identified. No pneumothorax apparent. CARDIOVASCULAR: No radiographic findings to suggest acute or significant cardiovascular disease. OSSEOUS STRUCTURES: No significant abnormalities. VISUALIZED UPPER ABDOMEN: Normal. OTHER FINDINGS: None. IMPRESSION: No active disease. No significant interval change compared to the prior examination(s). Concordant results with the preliminary interpretation rendered by the emergency department physician procedure.
--- NOTE | 2017-12-30 10:16 | ED PDOC ---
HPI: General Adult Time Seen by Provider: 12/15/17 15:01 Chief Complaint (Nursing): Shortness Of Breath Chief Complaint (Provider): chest tightness History Per: Patient History/Exam Limitations: no limitations Current Symptoms Are (Timing): Intermittent Episodes Severity: Mild Additional Complaint(s): 52yo female presents w/ chest tightness and congestion/ URI type symptoms, mild SOB intermittently for several days. Denies syncope, edema, orthopnea, neck or arm pain. Past Medical History Reviewed: Historical Data, Nursing Documentation, Vital Signs Vital Signs: Last Vital Signs Temp 97 F L 12/15/17 14:45 Pulse 78 12/15/17 14:45 Resp 18 12/15/17 16:05 BP 175/107 H 12/15/17 14:45 Pulse Ox 96 12/15/17 14:45 - Medical History PMH: Anxiety, Arthritis, Back Problems ("8 pinched nerves"), Depression, HTN ( STates she is not taking medication for BP becuase it improved after weight), Hypercholesterolemia, Chronic Pain Denies: Chronic Kidney Disease - Surgical History Surgical History: Tonsillectomy, (x1) - Family History Family History: States: Unknown Family Hx, Hypertension - Social History Current smoker - smoking cessation education provided: Yes - Immunization History Hx Tetanus Toxoid Vaccination: No - Home Medications Home Medications: Ambulatory Orders Medication Instructions Recorded Alprazolam [Xanax] 2 mg PO TID PRN 09/03/17 DULoxetine [Cymbalta] 60 mg PO DAILY 09/03/17 Ibuprofen [Motrin] 600 mg PO TID 7 Days tab 09/03/17 Mirtazapine [Remeron] 7.5 mg PO HS PRN 09/03/17 Oseltamivir Phosphate [Tamiflu] 75 mg PO BID 5 Days capsule 09/03/17 Albuterol 0.083% [Albuterol 0.083% 2.5 mg IH Q4 PRN #20 neb 12/15/17 Inhal Cecily (2.5 mg/3 ml) UD] Albuterol HFA [Ventolin HFA 90 1 - 2 puff IH Q4 PRN #1 inhaler 12/15/17 mcg/actuation (8 g)] Fluticasone Propionate [Flonase 1 spray NS DAILY #1 spray 12/15/17 Allergy Relief] Loratadine [Claritin] 10 mg PO DAILY #10 tab 12/15/17 Naproxen [Naprosyn] 500 mg PO BID PRN #14 tablet 12/15/17 hydroCHLOROthiazide [Hydrodiuril] 25 mg PO DAILY #15 tab 12/15/17 - Allergies Allergies/Adverse Reactions: Allergies Allergy/AdvReac Type Severity Reaction Status Date / Time No Known Allergies Allergy Verified 07/29/17 18:50 Review of Systems ROS Statement: Except As Marked, All Systems Reviewed And Found Negative Constitutional: Negative for: Fever Eyes: Negative for: Conjunctivae Inflammation Cardiovascular: Positive for: Chest Pain. Negative for: Palpitations Respiratory: Positive for: Shortness of Breath Gastrointestinal: Negative for: Nausea Genitourinary Female: Negative for: Dysuria Musculoskeletal: Negative for: Neck Pain Skin: Negative for: Rash, Lesions Neurological: Positive for: Dizziness. Negative for: Weakness Psych: Negative for: Anxiety, Depression Physical Exam - Reviewed Nursing Documentation Reviewed: Yes Vital Signs Reviewed: Yes - Physical Exam Appears: Positive for: Well, Non-toxic, No Acute Distress Head Exam: Positive for: ATRAUMATIC, NORMAL INSPECTION, NORMOCEPHALIC Skin: Positive for: Normal Color, Warm, DRY Eye Exam: Positive for: EOMI, Normal appearance, PERRL ENT: Positive for: Normal ENT Inspection Neck: Positive for: Normal, Painless ROM Cardiovascular/Chest: Positive for: Regular Rate, Rhythm Respiratory: Positive for: CNT, Normal Breath Sounds Gastrointestinal/Abdominal: Positive for: Soft. Negative for: Tenderness Back: Positive for: Normal Inspection Extremity: Positive for: Normal ROM Neurologic/Psych: Positive for: Alert, Oriented - Laboratory Results Result Diagrams: 12/15/17 15:55 12/15/17 15:55 - ECG ECG: Positive for: Interpreted By Me ECG Rhythm: Positive for: Normal ST Segment, Sinus Rhythm, Nonspecific Changes Rate: 81 O2 Sat by Pulse Oximetry: 96 Pulse Ox Interpretation: Normal - Radiology X-Ray: Interpreted by Me, Read By Radiologist X-Ray Interpretation: No Acute Disease Medical Decision Making Medical Decision Making: labs obtained, trop neg, labs otherwise unremarkable Improved w motrin Symptoms atypical for ACS DC from ED- explained mandatory followup w PMD for further workup 1-2 days. Disposition - Clinical Impression Clinical Impression: Chest congestion, Nasal congestion, Chest pain - Patient ED Disposition Is Patient to be Admitted: No Counseled Patient/Family Regarding: Studies Performed, Diagnosis, Need For Followup, Rx Given - Disposition Referrals: Rhonda Sol MD [Medical Doctor] - Disposition: Routine/Home Disposition Time: 17:30 Condition: STABLE Additional Instructions: Followup with Dr Sol in next week. Return to ER for any worse or new symptoms. Have your blood pressure checked in 3-4 days. Avoid salt in your diet Prescriptions: Albuterol 0.083% [Albuterol 0.083% Inhal Cecily (2.5 mg/3 ml) UD] 2.5 mg IH Q4 PRN #20 neb PRN Reason: Wheezing Albuterol HFA [Ventolin HFA 90 mcg/actuation (8 g)] 1 - 2 puff IH Q4 PRN #1 inhaler PRN Reason: Shortness Of Breath Fluticasone Propionate [Flonase Allergy Relief] 1 spray NS DAILY #1 spray hydroCHLOROthiazide [Hydrodiuril] 25 mg PO DAILY #15 tab Loratadine [Claritin] 10 mg PO DAILY #10 tab Naproxen [Naprosyn] 500 mg PO BID PRN #14 tablet PRN Reason: Pain, Moderate (4-7) Instructions: High Blood Pressure in Adults, Chest Pain, Seasonal Allergies (DC ) Forms: [employer] (E[place]ian)
[2017-12-30 10:18] VITALS: PULSE 81
== END 2017-12-15 17:11 | disposition home or self-care (01) ==
LOC: H.ER 14:31
DX: R09.89 Other specified symptoms and signs involving the circulatory and respiratory systems (principal); R09.81 Nasal congestion; R07.9 Chest pain, unspecified; F17.200 Nicotine dependence, unspecified, uncomplicated; G89.29 Other chronic pain; I10 Essential (primary) hypertension; Z86.59 Personal history of other mental and behavioral disorders; E78.00 Pure hypercholesterolemia, unspecified
CPT/HCPCS: 71046; 80053; 84484; 85025; 96372; 99284; J2270

== ENCOUNTER 2018-05-22 17:12 | Emergency (ER) | payer MEDICAID ==
[2018-05-22 17:12] VITALS: BMI 30.1
[2018-05-22 17:21] VITALS: BP 142/98; PULSE 84; RESP 18; TEMP 98.4; O2SAT 98
[2018-05-22] MEDS ORDERED: Naproxen 500 MG TAB PO STA (18:01)
[2018-05-22] MEDS ORDERED: Oxycodone/Acetaminophen 5/325 mg Tab PO STA (18:01)
[2018-05-22] MEDS ORDERED: Naproxen 500 MG TAB PO ONE (18:27)
[2018-05-22] MEDS ORDERED: Oxycodone/Acetaminophen 5/325 mg Tab ONE (18:27)
--- NOTE | 2018-05-22 19:24 | ED PDOC ---
HPI: Back Time Seen by Provider: 05/22/18 17:23 Chief Complaint (Nursing): Back Pain Chief Complaint (Provider): Back Pain History Per: Patient History/Exam Limitations: no limitations Onset/Duration Of Symptoms: Days Current Symptoms Are (Timing): Still Present Additional Complaint(s): Ilana Hilario is a 52 year female with a past medical history of chronic lower back pain who is presenting to the ED for evaluation of lower back pain worsened yesterday. Patient denies any fall or trauma and denies all other medical complaints. PMD: Aki Flynn Past Medical History Reviewed: Historical Data, Nursing Documentation, Vital Signs Vital Signs: Last Vital Signs Temp 98.4 F 05/22/18 17:19 Pulse 84 05/22/18 17:19 Resp 18 05/22/18 17:19 BP 142/98 H 05/22/18 17:19 Pulse Ox 98 05/22/18 17:19 - Medical History PMH: Anxiety, Arthritis, Back Problems ("8 pinched nerves"), Depression, HTN (STates she is not taking medication for BP becuase it improved after weight), Hypercholesterolemia, Chronic Pain (back) Denies: Chronic Kidney Disease - Surgical History Surgical History: Tonsillectomy, (x1) - Family History Family History: States: Hypertension - Social History Current smoker - smoking cessation education provided: Yes Alcohol: None Drugs: Denies - Immunization History Hx Tetanus Toxoid Vaccination: No - Home Medications Home Medications: Ambulatory Orders Medication Instructions Recorded Alprazolam [Xanax] 2 mg PO TID PRN 09/03/17 DULoxetine [Cymbalta] 60 mg PO DAILY 09/03/17 Ibuprofen [Motrin] 600 mg PO TID 7 Days tab 09/03/17 Mirtazapine [Remeron] 7.5 mg PO HS PRN 09/03/17 Oseltamivir Phosphate [Tamiflu] 75 mg PO BID 5 Days capsule 09/03/17 Albuterol 0.083% [Albuterol 0.083% 2.5 mg IH Q4 PRN #20 neb 12/15/17 Inhal Cecily (2.5 mg/3 ml) UD] Albuterol HFA [Ventolin HFA 90 1 - 2 puff IH Q4 PRN #1 inhaler 12/15/17 mcg/actuation (8 g)] Fluticasone Propionate [Flonase 1 spray NS DAILY #1 spray 12/15/17 Allergy Relief] Loratadine [Claritin] 10 mg PO DAILY #10 tab 12/15/17 Naproxen [Naprosyn] 500 mg PO BID PRN #14 tablet 12/15/17 hydroCHLOROthiazide [Hydrodiuril] 25 mg PO DAILY #15 tab 12/15/17 Cyclobenzaprine [Cyclobenzaprine 10 mg PO Q8H PRN #12 tab 05/22/18 HCl] Ibuprofen [Motrin Tab] 800 mg PO Q6H PRN #20 tab 05/22/18 oxyCODONE/Acetaminophen [Percocet 1 ea PO Q6H PRN #15 tab 05/22/18 5/325 mg Tab] - Allergies Allergies/Adverse Reactions: Allergies Allergy/AdvReac Type Severity Reaction Status Date / Time No Known Allergies Allergy Verified 05/22/18 17:18 Review of Systems ROS Statement: Except As Marked, All Systems Reviewed And Found Negative Musculoskeletal: Positive for: Back Pain Physical Exam - Reviewed Nursing Documentation Reviewed: Yes Vital Signs Reviewed: Yes - Physical Exam Appears: Positive for: Non-toxic, No Acute Distress Head Exam: Positive for: ATRAUMATIC, NORMAL INSPECTION, NORMOCEPHALIC Skin: Positive for: Normal Color, Warm, DRY Eye Exam: Positive for: Normal appearance ENT: Positive for: Normal ENT Inspection Neck: Positive for: Normal, Painless ROM Cardiovascular/Chest: Positive for: Regular Rate, Rhythm Respiratory: Positive for: CNT, Normal Breath Sounds Back: Positive for: Normal Inspection. Negative for: L CVA Tenderness, R CVA Tenderness, Vertebral Tenderness, Other (no midline tenderness) Neurologic/Psych: Positive for: Alert, Oriented. Negative for: Motor/Sensory Deficits - ECG O2 Sat by Pulse Oximetry: 98 (RA) Pulse Ox Interpretation: Normal Medical Decision Making Medical Decision Making: Time: 18:01 Plan: --Flexeril 10 mg PO --Naproxen 500 mg PO --Percocet 1 tab PO Upon provider evaluation patient is medically stable, and requires no further treatment in the ED at this time. Patient will be discharged. Counseling was provided and all questions were answered regarding diagnosis and need for follow up with PMD. There is agreement to discharge plan. Return if symptoms persist or worsen. Scribe Attestation: Documented by Sravani Montero, acting as a scribe for Rae Vaughn PA-C. Provider Scribe Attestation: All medical record entries made by the Scribe were at my direction and personally dictated by me. I have reviewed the chart and agree that the record accurately reflects my personal performance of the history, physical exam, medical decision making, and the department course for this patient. I have also personally directed, reviewed, and agree with the discharge instructions and disposition. Disposition - Clinical Impression Clinical Impression: Back pain - Patient ED Disposition Is Patient to be Admitted: No - Disposition Referrals: Aki Flynn MD [Primary Care Provider] - Disposition: Routine/Home Disposition Time: 19:21 Condition: GOOD Prescriptions: Cyclobenzaprine [Cyclobenzaprine HCl] 10 mg PO Q8H PRN #12 tab PRN Reason: Muscle Spasm Ibuprofen [Motrin Tab] 800 mg PO Q6H PRN #20 tab PRN Reason: Pain oxyCODONE/Acetaminophen [Percocet 5/325 mg Tab] 1 ea PO Q6H PRN #15 tab PRN Reason: Pain, Severe (8-10) Instructions: Low Back Pain (DC), Back Exercises Forms: [employer] ([employer])
== END 2018-05-22 19:24 | disposition home or self-care (01) ==
LOC: H.ER 17:12
DX: M54.5 Low back pain (principal); F17.200 Nicotine dependence, unspecified, uncomplicated; Z86.59 Personal history of other mental and behavioral disorders; G89.29 Other chronic pain; I10 Essential (primary) hypertension